=== PATIENT | male | born 1960 | race Two or more races ===

== ENCOUNTER 2018-10-22 06:09 | Emergency (ER) | payer SELFPAY ==
[2018-10-22] MEDS ORDERED: Alum Hydrox/Mag Hydrox/Simeth 15 ML, Metoclopramide 5 MG, Lidocaine 2% 5 ML PO ONE ×3 (06:25)
[2018-10-22] MEDS ORDERED: Pantoprazole 40 MG Vial IVPUSH ONE (06:25)
[2018-10-22] MEDS ORDERED: Sodium Chloride 0.9% 20 ML SDV FLUSH STA (06:28)
[2018-10-22] MEDS ORDERED: Ondansetron 4 MG/2 ML SDV IVPUSH ONE (06:28)
[2018-10-22] MEDS ORDERED: Sodium Chloride 0.9% 1,000 ML IV SCH (06:30)
[2018-10-22 06:50] LABS: CHLORIDE,CL 106 mmol/L (98-107); SODIUM,NA 139 mmol/L (136-148)
--- NOTE | 2018-10-22 07:06 | EDM.PDOC ---
ED HPI GENERAL MEDICAL PROBLEM - General Chief Complaint: Abdominal Pain Stated Complaint: ABDOMINAL PAIN Time Seen by Provider: 10/22/18 07:04 - History of Present Illness INITIAL COMMENTS - FREE TEXT/NARRATIVE: HISTORY AND PHYSICAL: History of present illness: Patient 58-year-old white male presents with epigastric abdominal pain he denies shortness of breath chest pain fever chills Review of systems: As per history of present illness and below otherwise all systems reviewed and negative. Past medical history: As per history of present illness and as reviewed below otherwise noncontributory. Surgical history: As per history of present illness and as reviewed below otherwise noncontributory. Social history: No reported history of drug or alcohol abuse. Family history: As per history of present illness and as reviewed below otherwise noncontributory. Physical exam: HEENT: Atraumatic, normocephalic, pupils reactive, negative for conjunctival pallor or scleral icterus, mucous membranes moist, throat clear, neck supple, nontender, trachea midline. Lungs: Clear to auscultation, breath sounds equal bilaterally, chest nontender. Heart: S1S2, regular, negative for clicks, rubs, or JVD. Abdomen: Soft, nondistended, nontender. Negative for masses or hepatosplenomegaly. Negative for costovertebral tenderness. Pelvis: Stable nontender. Genitourinary: Deferred. Rectal: Deferred. Extremities: Atraumatic, negative for cords or calf pain. Neurovascular unremarkable. Neuro: Awake, alert, oriented. Cranial nerves II through XII unremarkable. Cerebellum unremarkable. Motor and sensory unremarkable throughout. Exam nonfocal. Diagnostics: CBC CMP and lipase EKG Therapeutics: Saline 1 L bolus GI cocktail Protonix 80 mg IV Impression: #1 epigastric abdominal pain Definitive disposition and diagnosis as appropriate pending reevaluation and review of above. epigastric Pain Score (Numeric/FACES): 10 - Related Data Allergies Allergy/AdvReac Type Severity Reaction Status Date / Time aspirin Allergy Rash Verified 10/22/18 06:25 Penicillins Allergy Rash Verified 10/22/18 06:25 Home Meds: Home Meds . [No Known Home Meds] 10/22/18 [History] Past Medical History Musculoskeletal History: Reports: None - Past Surgical History Musculoskeletal Surgical History: Reports: Other (See Below) Other Musculoskeletal Surgeries/Procedures:: right knee Social & Family History - Family History Family Medical History: Noncontributory - Tobacco Use Smoking Status *Q: Never Smoker Second Hand Smoke Exposure: No - Caffeine Use Caffeine Use: Reports: Coffee - Recreational Drug Use Recreational Drug Use: No ED ROS GENERAL - Review of Systems Review Of Systems: ROS reveals no pertinent complaints other than HPI. ED EXAM, GENERAL - Physical Exam Exam: See Below (See dictation) Course - Vital Signs Last Recorded V/S: Last Vital Signs Temp 35.7 C 10/22/18 06:11 Pulse 57 L 10/22/18 06:11 Resp 18 10/22/18 06:11 BP 166/91 H 10/22/18 06:11 Pulse Ox 99 10/22/18 06:11 - Orders/Labs/Meds Orders: Active Orders 24 hr Category Date Time Status EKG 12 Lead [EKG Documentation Completion] [RC] STAT Care 10/22/18 06:31 Active Abdomen Ltd [US] Stat Exams 10/22/18 07:21 Taken Sodium Chloride 0.9% [Normal Saline] 1,000 ml Med 10/22/18 06:30 Active IV ASDIRECTED Medication Orders Sodium Chloride (Normal Saline) 1,000 mls @ 999 mls/hr IV ASDIRECTED MEHRDAD Last Admin: 10/22/18 06:35 Dose: 999 mls/hr Labs: Laboratory Tests 10/22/18 10/22/18 10/22/18 Range/Units 06:20 06:20 06:45 WBC 8.95 (4.0-11.0) K/uL RBC 4.95 (4.50-5.90) M/uL Hgb 15.6 (13.0-17.0) g/dL Hct 44.1 (38.0-50.0) % MCV 89.1 (80.0-98.0) fL MCH 31.5 (27.0-32.0) pg MCHC 35.4 (31.0-37.0) g/dL RDW Std Deviation 42.5 (28.0-62.0) fl RDW Coeff of [place] 13 (11.0-15.0) % Plt Count 195 (150-400) K/uL MPV 9.40 (7.40-12.00) fL Neut % (Auto) 71.3 (48.0-80.0) % Lymph % (Auto) 22.9 (16.0-40.0) % [place] % (Auto) 4.8 (0.0-15.0) % Eos % (Auto) 0.9 (0.0-7.0) % Baso % (Auto) 0.1 (0.0-1.5) % Neut # (Auto) 6.4 H (1.4-5.7) K/uL Lymph # (Auto) 2.1 (0.6-2.4) K/uL [place] # (Auto) 0.4 (0.0-0.8) K/uL Eos # (Auto) 0.1 (0.0-0.7) K/uL Baso # (Auto) 0.0 (0.0-0.1) K/uL Nucleated RBC % 0.0 /100WBC Nucleated RBCs # 0 K/uL Sodium 139 (136-148) mmol/L Potassium 4.1 (3.5-5.1) mmol/L Chloride 106 (98-107) mmol/L Carbon Dioxide 26.4 (21.0-32.0) mmol/L BUN 17 (7.0-18.0) mg/dL Creatinine 1.0 (0.8-1.3) mg/dL Est Cr Clr Drug Dosing 82.48 mL/min Estimated GFR (MDRD) > 60.0 ml/min Glucose 118 H (74-106) mg/dL Calcium 9.2 (8.5-10.1) mg/dL Total Bilirubin 0.4 (0.2-1.0) mg/dL AST 30 (15-37) IU/L ALT 70 H (14-63) IU/L Alkaline Phosphatase 107 (46-116) U/L Total Protein 8.1 (6.4-8.2) g/dL Albumin 4.0 (3.4-5.0) g/dL Globulin 4.1 H (2.6-4.0) g/dL Albumin/Globulin Ratio 1.0 (0.9-1.6) Lipase 134 (73-393) U/L Urine Color YELLOW Urine Appearance CLEAR Urine pH 8.0 (5.0-8.0) Ur Specific [place] 1.020 (1.001-1.035) Urine Protein NEGATIVE (NEGATIVE) mg/dL Urine Glucose (UA) NEGATIVE (NEGATIVE) mg/dL Urine Ketones NEGATIVE (NEGATIVE) mg/dL Urine Occult Blood NEGATIVE (NEGATIVE) Urine Nitrite NEGATIVE (NEGATIVE) Urine Bilirubin NEGATIVE (NEGATIVE) Urine Urobilinogen 1.0 (<2.0) EU/dL Ur Leukocyte Esterase NEGATIVE (NEGATIVE) Urine RBC NONE SEEN (0-2/HPF) Urine WBC 0-1 (0-5/HPF) Ur Epithelial Cells RARE (NONE-FEW) Urine Bacteria RARE (NEGATIVE) Meds: Medications Generic Name Dose Route Start Last Admin Trade Name Freq PRN Reason Stop Dose Admin Sodium Chloride 1,000 mls @ 999 mls/hr 10/22/18 06:30 10/22/18 06:35 Normal Saline IV 999 mls/hr ASDIRECTED MEHRDAD Administration Discontinued Medications Generic Name Dose Route Start Last Admin Trade Name Freq PRN Reason Stop Dose Admin Al Hydroxide/Mg Hydroxide 15 0 ml 10/22/18 06:25 10/22/18 06:36 ml/ Metoclopramide HCl 5 mg/ PO 10/22/18 06:26 1 each Lidocaine HCl 5 ml ONETIME ONE Administration Ondansetron HCl 4 mg 10/22/18 06:28 10/22/18 06:36 Zofran IVPUSH 10/22/18 06:29 4 mg ONETIME ONE Administration Pantoprazole Sodium 80 mg 10/22/18 06:25 10/22/18 06:37 Protonix Iv IVPUSH 10/22/18 06:26 80 mg BOLUS ONE Administration Sodium Chloride 20 ml 10/22/18 06:28 10/22/18 06:37 Normal Saline FLUSH 10/22/18 06:29 20 ml NOW STA Administration Departure - Departure Time of Disposition: 08:36 Disposition: Home, Self-Care 01 Condition: Good Clinical Impression: Abdominal pain - Discharge Information Forms: ED Department Discharge Additional Instructions: The following information is given to patients seen in the emergency department who are being discharged to home. This information is to outline your options for follow-up care. We provide all patients seen in our emergency department with a follow-up referral. The need for follow-up, as well as the timing and circumstances, are variable depending upon the specifics of your emergency department visit. If you don't have a primary care physician on staff, we will provide you with a referral. We always advise you to contact your personal physician following an emergency department visit to inform them of the circumstance of the visit and for follow-up with them and/or the need for any referrals to a consulting specialist. The emergency department will also refer you to a specialist when appropriate. This referral assures that you have the opportunity for followup care with a specialist. All of these measure are taken in an effort to provide you with optimal care, which includes your followup. Under all circumstances we always encourage you to contact your private physician who remains a resource for coordinating your care. When calling for followup care, please make the office aware that this follow-up is from your recent emergency room visit. If for any reason you are refused follow-up, please contact the [facility] emergency department at and asked to speak to the emergency department charge nurse. [facility] - General Surgery Professional Building [address] [place] [address], [address] [place] [address] Protonix as prescribed follow-up Gen. surgery above call to schedule routine appointment return as needed as discussed - My Orders Last 24 Hours: My Active Orders 10/22/18 06:30 Sodium Chloride 0.9% [Normal Saline] 1,000 ml IV ASDIRECTED 10/22/18 06:31 EKG 12 Lead [EKG Documentation Completion] [RC] STAT 10/22/18 07:21 Abdomen Ltd [US] Stat - Assessment/Plan Last 24 Hours: My Active Orders 10/22/18 06:30 Sodium Chloride 0.9% [Normal Saline] 1,000 ml IV ASDIRECTED 10/22/18 06:31 EKG 12 Lead [EKG Documentation Completion] [RC] STAT 10/22/18 07:21 Abdomen Ltd [US] Stat
--- NOTE | 2018-10-22 07:07 | CR ---
INDICATION: EPIGASTRIC PAIN STARTING A FEW HOURS AGO TECHNIQUE: Chest 1 view. COMPARISON: None FINDINGS: Cardiovascular and mediastinum: Heart size and vasculature are normal in caliber and appearance. Mediastinum is within normal limits. Lungs and pleural space: Lungs are clear. No sign of infiltrate or mass. No sign of pleural effusion. No pneumothorax. Bones and soft tissues: No significant findings. IMPRESSION: Unremarkable chest. Dictated by: Manjit Duarte MD @ 10/22/2018 07:04:38 (Electronically Signed)
--- NOTE | 2018-10-22 08:42 | US ---
INDICATION: Epigastric abdomen pain TECHNIQUE: Ultrasound abdomen limited. Sonographic images of the right upper quadrant were obtained using dover-scale and color Doppler images. COMPARISON: None FINDINGS: Liver: Normal in size and echotexture. No masses. No intrahepatic biliary dilatation. Gallbladder: No stones or sludge. Normal wall thickness. No pericholecystic fluid. Common bile duct: 3 mm. Pancreas: Normal. Right kidney: Normal in size. Normal echotexture and cortex. No suspicious masses, stones, or hydronephrosis. Vasculature: Proximal abdominal aorta and IVC are normal. IMPRESSION: Unremarkable right upper quadrant ultrasound. Dictated by Manjit Duarte MD @ Oct 22 2018 8:35AM Signed by Dr. Manjit Duarte @ Oct 22 2018 8:41AM
== END 2018-10-22 08:50 | disposition home or self-care (01) ==
LOC: MW.ED 06:09
DX: R10.13 Epigastric pain (principal); Z88.0 Allergy status to penicillin; Z88.6 Allergy status to analgesic agent
CPT/HCPCS: 36415; 71045; 76705; 80053; 81001; 83690; 85025; 93005; 96361; 96374; 96375; 99284; A9270; C9113; J2405; J7040; 99283